=== PATIENT | male | born 1980 | race Caucasian/White ===

== ENCOUNTER 2017-08-03 20:25 | Inpatient (IN) | payer SELFPAY ==
[2017-08-03] MEDS ORDERED: Promethazine HCl 25 MG/ML VIAL ONE ×2 (20:51→23:24)
[2017-08-03] MEDS ORDERED: Dexamethasone 10 MG/ML VIAL ONE (20:51)
[2017-08-03] MEDS ORDERED: HYDROmorphone 0.5 MG/0.5 ML SYRINGE SLOW IVP SCH (21:00)
[2017-08-03] MEDS ORDERED: HYDROmorphone 0.5 MG/0.5 ML SYRINGE ONE ×2 (21:02→22:08)
[2017-08-03 21:06] LABS: #Lymphocytes 0.4 thou/uL (1.20-3.40); #Monocytes 0.4 thou/uL (0.11-0.59); #Neutrophils 7.8 thou/uL (1.40-6.50); %Basophils 0.1 % (0.0-1.0); %Eosinophils 0.2 % (0.0-10.0); %Lymphocytes 4.3 % (21.0-51.0); %Monocytes 4.7 % (0.0-10.0); %Neutrophils 90.7 % (42.0-75.0); Hemoglobin 10.2 g/dL (14.0-18.0); Mean Corpuscular HGB CONC 32.4 g/dL (32.0-36.0); Mean Corpuscular Hemoglobin 30.8 pg (27.0-31.0); Mean Corpuscular Volume 95.1 fl (80.0-94.0); Mean Platelet Volume 7.4 fL (7.4-10.4); Platelet Count 249 thou/uL (130-400); RBC Distribution Width 15.7 % (11.5-14.5); Red Blood Cell (RBC) Count 3.32 mill/uL (4.70-6.10); White Blood Cell (WBC) Count 8.6 thou/uL (4.8-10.8)
[2017-08-03 21:13] LABS: PTT 26.2 SEC (22.9-36.1); Prothrombin Time 13.3 SEC (12.0-14.7)
[2017-08-03 21:26] LABS: ALT (SGPT) 18 U/L (8-55); AST (SGOT) 15 U/L (5-34); Albumin 3.7 g/dL (3.5-5.0); Alkaline Phosphatase 68 U/L (40-150); Anion Gap 11 mmol/L (10-20); BUN (Urea Nitrogen) 7 mg/dL (8.9-20.6); Bilirubin, Total 0.3 mg/dL (0.2-1.2); Calc. Creatinine Clearance 0 mL/min (70-130); Calcium 8.8 mg/dL (7.8-10.44); Carbon Dioxide 25 mmol/L (22-29); Chloride 110 mmol/L (98-107); Estimated GFR-MDRD Greater than 90; Globulin 1.9 g/dL (2.4-3.5); Glucose 130 mg/dL (70-105); Potassium 3.9 mmol/L (3.5-5.1); Protein, Total 5.6 g/dL (6.0-8.3); Sodium 142 mmol/L (136-145)
[2017-08-03] MEDS ORDERED: Lorazepam 2 MG/ML VIAL ONE (23:01)
--- NOTE | 2017-08-03 23:17 | PDOC.FPRHP ---
- History of Present Illness Chief Complaint: Abdominal pain, N/V History of Present Illness: 37 year old male with PMH of glioblastoma diagnosed 10 months ago and Crohn's disease s/p bowel resection that presents with a 3 day history of bloody emesis and maroon colored loose stools. Patient was receiving chemo therapy at [facility] and was living in [place] prior to moving back to [facility] to be closer with family last Thursday. Jethro got infected last Thursday and he has been antibiotics since that time. He was on TPN for 4 months prior to the mediport infection because his PEG tube was not working properly. He states he is unable to take anything PO because he immediately vomits. He says he is also unable to take anything through his PEG tube because it immediately makes him vomit. He is on an extensive pain regimen at home to include diluadid. He states currently he is having diffuse abdominal pain and headaches, although on initial evaluation he said his headaches were no worse than a regular headache. Patient upset when told that dilaudid cannot be given on the floor with anesthesiology on board. He states that morphine and fentanyl do not do anything for him. ED Course: Patient given ativan 2 mg, dilaudid 2 mg IV, decadron 10 mg, phenergan 25 mg x2 , 1L NS bolus, and 500 mg IV Keppra in ED. Patient given 4 mg dilaudid in outside ED. - Allergies/Adverse Reactions Allergies Allergy/AdvReac Type Severity Reaction Status Date / Time iodine Allergy Verified 08/04/17 06:36 ketorolac Allergy Verified 08/04/17 06:36 NSAIDS (Non-Steroidal Allergy Verified 08/04/17 06:36 Anti-Inflamma tramadol Allergy Verified 08/04/17 06:36 - Home Medications Medication Instructions Recorded Confirmed Type Unobtainable [Unobtainable] 08/04/17 08/04/17 History - History PMHx: Crohn's Disease since 19 years old, Glioblastoma (receiving chemo), Hx CVA , Infected Mediport, Seizure disorder PSHx: PEG tube, Bowel resections 2/2 Crohn's '16 FHx: Non-contriubtory Social: Hx rare sporadic tobacco use. Denies alcohol or drug use. Has moved multiple times which he admits makes his medical care challenging. Receives chemo and likely sees primary oncologist at [facility]. Recently lived in [facility] for 3-4 months; flew back and forth for medical care. Moved to [place] today to be closer to mother to assist with his 5 children. - Review of Systems General: reports: fever/chills (tmax 102.4 F), weight/appetite/sleep changes ( unable to tolerate PO) Eyes: denies: eye pain, vision changes ENT: denies: nasal congestion, rhinorrhea Respiratory: denies: cough, congestion, shortness of breath Cardiovascular: reports: edema (due to chemo). denies: chest pain, palpitation Gastrointestinal: reports: nausea, vomiting (several episodes of bilious and bloody emesis, bright red over last 3 days), diarrhea, abdominal pain, GI bleeding (maroon colored loose stools) Genitourinary: denies: incontinence, dysuria, polyuria Skin: denies: rashes, jaundice, itching Musculoskeletal: denies: pain, tenderness, swelling Neurological: reports: seizure (history of seizure x1 since glioblastoma diagnosis). denies: numbness, syncope, weakness - Vital signs BP: 182/118 HR: 104 RR: 16 Tmax: 98.2 F Pox: 97% on RA Wt: 83.91 kg - Physical Exam Constitutional: NAD, awake, alert and oriented, well developed -Constitutional: Walking around prior to examination HEENT: normocephalic and atraumatic, PERRLA, EOMI Neck: supple Heart: RRR, no murmurs/rubs/gallops, pulses present, no edema Lungs: CTAB, no respiratory distress, no wheezing Abdomen: soft, no masses/distention -Abdomen: Mildly tender to palpation, worse in RLQ, hyperactive bowel sounds, PEG tube in place Musculoskeletal: normal structure, normal tone Neurological: no focal deficit, CN II-XII intact -Skin: Multiple tattoos FMR H&P: Results - Labs Result Diagrams: 08/04/17 06:52 08/04/17 06:52 Lab results: WBC 8.6 thou/uL (4.8-10.8) 08/03/17 20:52 Hgb 10.2 g/dL (14.0-18.0) L 08/03/17 20:52 Hct 31.6 % (42.0-52.0) L 08/03/17 20:52 MCV 95.1 fl (80.0-94.0) H 08/03/17 20:52 Plt Count 249 thou/uL (130-400) 08/03/17 20:52 Neutrophils % 90.7 % (42.0-75.0) H 08/03/17 20:52 Sodium 142 mmol/L (136-145) 08/03/17 20:52 Potassium 3.9 mmol/L (3.5-5.1) 08/03/17 20:52 Chloride 110 mmol/L (98-107) H 08/03/17 20:52 Carbon Dioxide 25 mmol/L (22-29) 08/03/17 20:52 BUN 7 mg/dL (8.9-20.6) L 08/03/17 20:52 Creatinine 0.75 mg/dL (0.6-1.3) 08/03/17 20:52 Glucose 130 mg/dL (70-105) H 08/03/17 20:52 Calcium 8.8 mg/dL (7.8-10.44) 08/03/17 20:52 Total Bilirubin 0.3 mg/dL (0.2-1.2) 08/03/17 20:52 AST 15 U/L (5-34) 08/03/17 20:52 ALT 18 U/L (8-55) 08/03/17 20:52 Alkaline Phosphatase 68 U/L (40-150) 08/03/17 20:52 Serum Total Protein 5.6 g/dL (6.0-8.3) L 08/03/17 20:52 Albumin 3.7 g/dL (3.5-5.0) 08/03/17 20:52 FMR H&P: A/P - Problem List (1) Upper GI bleed Current Visit: Yes Status: Acute Code(s): K92.2 - GASTROINTESTINAL HEMORRHAGE, UNSPECIFIED (2) Crohns disease Current Visit: Yes Status: Chronic Code(s): K50.90 - CROHN'S DISEASE, UNSPECIFIED, WITHOUT COMPLICATIONS (3) Glioblastoma Current Visit: Yes Status: Chronic Code(s): C71.9 - MALIGNANT NEOPLASM OF BRAIN, UNSPECIFIED - Plan Upper GI bleed - 3 day history of bloody emesis and maroon colored stools - Emesis not visualized - GI consulted in ED; appreciate recs - PEG tube to low suction and protonix per GI recs - FOBT positive Glioblastoma - On extensive pain regimen at home to include dilaudid - Diagnosed 9-10 months ago per pt; no records available at this time - Was receiving chemotherapy in [place] prior to moving to [place] - Had mediport removed last week due to infection; Was receiving TPN for 4 months prior to removal of mediport - Subjectively severe pain - Will continue home medications with the exception of dilaudid as that cannot be given on the floor without anesthesiology on board; will consult anesthesiology for PAPER SALES REPRESENTATIVE pump - Patient adamant he receive his pain medications - Consider oncology consult in AM to help establish care as patient is from out of town - Try to obtain medical records in AM Seizure disorder - One seizure since diagnosis of glioblastoma - Continue home med Mediport infection - Removed on Thursday - Continue Cipro; no sensitivities or culture available Crohn's disease - s/p resection and complications leading to PEG tube patient - GI consulted in ED; appreciate recs - Continue methotrexate, steroids, and humira - Continue home meds and await GI recs - May be in acute flare due to reported pain FMR H&P: Upper Level - Pertinent history 37 yo CM with PMHx glioblastoma, Crohns disease, and seizure d/o who presented to [facility] ED due to blood in emesis and stools. Pt is unable to eat or tolerate PEG tube feedings without vomiting over last 4 months due to complications with Crohns treatment. Endorses 4 months of TPN. Had mediport placed but became infected 7 days ago (staph aureus) and had to be removed. Currently on Cipro due to this. Pt did not apparently have a line replaced and has been unable to administer TPN or any IV meds since then. He attempted putting in PEG but he just vomits them. Over last 3 days, c/o worsening diffuse abdominal pain and is noticing mixture of old and new appearing blood in emesis , as well as melanotic stools. His hx is complicated by glioblastoma dx 9-10 months ago with recent completion of 7th (of 10) chemotherapy tx at [facility]. He recently lived in [facility] and endorsed flying back to [facility] for tx. He and 5 children just moved to [place] today to be closer to his mother. When discussing pain, he endorses occasional HAs just like the typical HAs regular people get sometimes. Nothing crazy. He also has rare blurry vision that resolves quickly. He currently endorses more severe abdominal pain just for last 3 days, but not present at baseline. States he only takes dilaudid at home when he needs it but due to comfortable environment at home, it tends not to be frequent. Of note, when told dilaudid not being approved for use on the hospital floors, he became agitated and started talking about HAs where his head is going to explode, etc. He was very argumentative and stated morphine and fentanyl dont work so we are just wasting our time. His story about pain began changing and he demanded dilaudid because he is dying of brain cancer and the doctors dont understand that. He states he is not going to display his pain outwardly but this doesn't mean he is not in significant pain. - Pertinent findings Gen: well nourished, NAD, alert HEENT: L IJ central line dressed CV: RRR, no m/r/g Lungs: coarse rales bilateral mid and lower lobes, decreased breath sounds R lung base; sporadic intermittent wheezing, no rhonchi Abd: generalized moderate abdominal pain worst in RLQ; ND, PEG in place; hyperactive BS, voluntary guarding Ext: no edema Skin: multiple tattoos, no erythema surrounding PEG Psych: story inconsistent at times; argumentative when discussing pain meds; tangential but easily directable; pain level appears incongruent with stated complaints at times - Plan Date/Time: 08/03/17 0694 1. Upper GI bleed. Dr. Renee consulted from ED and will see tomorrow. Appreciate recs. IV protonix ordered in light of methotrexate use (consider holding tomorrows weekly methotrexate or speak with pharmacy about adjusting dose temporarily). Hgb appears stable. Minimal blood visualized in stool with FOBT + test. Emesis not personally visualized. Admitting to oncology service due to comorbid brain tumor. 2. Persistent nausea/vomiting. Appears potentially related to complications from GI surgeries treating Crohns dz. Will consult nutrition team tomorrow for TPN as on for 4 months but none in last week. D5NS in meantime through central line placed at outside ED. GI consulted and appreciate recs. PEG tube to low suction currently. Pts pain subjectively severe. Hx daily dilaudid use due to brain cancer. Will consult anesthesia for pain control as pt adamant that nothing works anymore except dilaudid. Phenergan prn. 3. Glioblastoma. Dxd 9-10 months ago per pt. No records available at this time. Tx in [place]. Currently receiving chemo. Mediport removed last week due to infection so off all IV meds since. Oncology consult in AM although brain tumor appears at baseline symptomatically. Likely set up outpatient follow -up as no PCP for quick referral at moment. Will attempt to obtain records from another medical facility corroborating his diagnoses and treatment in AM as history was inconsistent and reservations concerning his need for strong pain meds in light of reported lack of pain at baseline. 4. Mediport infection. Continue IV Cipro from home. No sensitivities or culture available. May attempt to obtain records in AM. 5. Seizure d/o. Restart IV keppra. Had 1 seizure related to brain tumor and none since starting Keppra. 6. Crohns disease. GI consult in ED. Appreciate recs. Takes methotrexate, steroids, and Humira. Continue home meds and await GI recs. May be in acute flare due to reported pain. I, Gomez Mann, have evaluated this patient and agree with findings/plan as outlined by clinical nursing intern resident. Pertinent changes/additions are listed here.
[2017-08-03] MEDS ORDERED: Pantoprazole 40 MG VIAL ONE (23:24)
[2017-08-04] MEDS ORDERED: Morphine 4 MG/ML VIAL SLOW IVP PRN ×3 (02:01→02:26)
[2017-08-04] MEDS ORDERED: Promethazine HCl 25 MG/ML VIAL SLOW IVP PRN ×2 (02:02→12:06)
[2017-08-04] MEDS ORDERED: Lorazepam 2 MG/ML VIAL SLOW IVP PRN (02:03)
[2017-08-04] MEDS ORDERED: Sodium Chloride 0.9% 1,000 ML IV SCH (02:15)
[2017-08-04] MEDS ORDERED: Ondansetron HCl/PF 4 MG/2 ML Vial IVP PRN ×3 (02:24→12:06)
[2017-08-04] MEDS: Dextrose 5 % And 0.9 % NaCl 1,000 ML IV SCH ×4 (02:30→20:59)
[2017-08-04] MEDS ORDERED: Naloxone HCl 0.4 mg/ml Vial IV PRN (02:48)
[2017-08-04] MEDS ORDERED: diphenhydrAMINE 25 MG CAP PO PRN (02:48)
[2017-08-04] MEDS ORDERED: Zolpidem Tartrate 5 MG TAB PO PRN (02:48)
[2017-08-04] MEDS ORDERED: diphenhydrAMINE 50 MG/ML VIAL IM PRN (02:48)
[2017-08-04] MEDS ORDERED: Communication Order-Pharmacy FS SCH (03:00)
[2017-08-04] MEDS: HYDROmorphone 10 mg/100 ml CADD IVPB PRN (04:29)
[2017-08-04 07:04] LABS: #Basophils 0.1 thou/uL (0.0-0.2); #Lymphocytes 0.2 thou/uL (1.20-3.40); #Monocytes 0.3 thou/uL (0.11-0.59); #Neutrophils 8.5 thou/uL (1.40-6.50); %Basophils 0.6 % (0.0-1.0); %Eosinophils 0.3 % (0.0-10.0); %Lymphocytes 1.9 % (21.0-51.0); %Monocytes 3.5 % (0.0-10.0); %Neutrophils 93.8 % (42.0-75.0); Hemoglobin 9.7 g/dL (14.0-18.0); Mean Corpuscular HGB CONC 32.8 g/dL (32.0-36.0); Mean Corpuscular Volume 94.6 fl (80.0-94.0); Mean Platelet Volume 7.9 fL (7.4-10.4); Platelet Count 235 thou/uL (130-400); RBC Distribution Width 15.9 % (11.5-14.5); Red Blood Cell (RBC) Count 3.11 mill/uL (4.70-6.10); White Blood Cell (WBC) Count 9.1 thou/uL (4.8-10.8)
[2017-08-04 07:26] LABS: Anion Gap 9 mmol/L (10-20); BUN (Urea Nitrogen) 11 mg/dL (8.9-20.6); Calc. Creatinine Clearance 0 mL/min (70-130); Calcium 8.5 mg/dL (7.8-10.44); Carbon Dioxide 24 mmol/L (22-29); Chloride 110 mmol/L (98-107); Estimated GFR-MDRD Greater than 90; Glucose 212 mg/dL (70-105); Potassium 4.2 mmol/L (3.5-5.1); Sodium 139 mmol/L (136-145)
[2017-08-04] MEDS: Pantoprazole 40 MG VIAL IVP SCH (08:39)
[2017-08-04] MEDS: Promethazine HCl 25 MG/ML VIAL IM PRN ×2 (08:40→20:55)
[2017-08-04 09:55] LABS: Syphilis Antibody Nonreactive (Nonreactive); Syphilis Antibody Index 0.01 S/CO (<1.00 Non-Reactive)
[2017-08-04 09:56] LABS: HIV (1/2) Antibody/Antigen Non-Reactive (NonReactive); HIV 1/2 INDEX 0.11 S/CO (<1.00); Hep C IgG Ab Non-Reactive (NonReactive); Hep C Index 0.03 S/CO (0-0.79)
[2017-08-04] MEDS ORDERED: Meperidine HCl/PF 25 MG/ML VIAL SLOW IVP PRN (12:06)
[2017-08-04] MEDS ORDERED: Promethazine HCl 25 MG/ML VIAL IM PRN (12:06)
--- NOTE | 2017-08-04 13:03 | HP ---
I have reviewed the history and physical of Dr. Brittni Roldan and discussed the case with her. I agree with her assessment and plan. Briefly, Mr. Hardeep Arora is a 37-year-old white male patient, who unfortunately has recently been diagnosed with a glioblastoma and is on numerous medications for this problem. He presented to our emergency room with a 3-day history of bloody emesis and maroon-colored stool suggesting upper GI ble ed. He states he is unable to hold any food down even through his PEG tube. He states that the pres ence of food makes him immediately develop nausea and vomiting. PHYSICAL EXAMINATION: VITAL SIGNS: His blood pressure is 180/110, his respirations are 14 and not labored. He is afebrile . His heart rate is 98. GENERAL: He is awake, cooperative, alert. No distress. EARS, NOSE, and THROAT: No erythema or exudate. NECK: Supple. CARDIAC: Heart rhythm is regular, without gallop, rub, or murmur noted. LUNGS: Clear, without rales or wheezes. ABDOMEN: Soft. No masses, guarding, rebound, or rigidity. EXTREMITIES: No cyanosis or edema. NEUROLOGIC: No focal deficits are noted. LABORATORY DATA: His CBC: White count is 8600, hemoglobin 10.2, hematocrit 31.6 with an MCV of 95.1 . PT/INR normal. Chemistries: Sodium 142, potassium 3.9, chloride 110, bicarb 25, BUN 7, creatinin e 0.75. Glucose 130. Liver enzymes normal. His syphilis serology is nonreactive. ASSESSMENT: 1. Probable upper gastrointestinal bleed. 2. Glioblastoma. PLAN: GI has already been consulted and plan on an EGD later this morning. He is on a PPI. We will resume many of his home medications as well as a SR. DIRECTOR PRODUCT MANAGEMENT Dilaudid pump for pain.
[2017-08-04] MEDS ORDERED: Succinylcholine Chloride 20 MG/ML 10 ml SYRINGE FS ONE (14:27)
[2017-08-04] MEDS ORDERED: Dexamethasone 20 MG/5 ML VIAL ONE (14:27)
[2017-08-04] MEDS ORDERED: PROPOFOL 200 MG/20 ML VIAL ONE (14:27)
[2017-08-04] MEDS ORDERED: Lidocaine 1% PF 5 ML VIAL ONE (14:27)
[2017-08-04 18:47] VITALS: BMI 27.5
[2017-08-04] MEDS: diphenhydrAMINE 50 MG/ML VIAL IVP PRN (20:55)
[2017-08-04] MEDS ORDERED: Lorazepam 1 MG TAB PO SCH (23:45)
[2017-08-04] MEDS ORDERED: Lorazepam 1 MG TAB PO PRN (23:53)
[2017-08-05] MEDS: diphenhydrAMINE 50 MG/ML VIAL IVP PRN ×6 (00:51→20:59)
[2017-08-05] MEDS: Dextrose 5 % And 0.9 % NaCl 1,000 ML IV SCH ×4 (01:30→23:13)
[2017-08-05] MEDS: HYDROmorphone 10 mg/100 ml CADD IVPB PRN ×2 (04:28→15:38)
[2017-08-05] MEDS: Promethazine HCl 25 MG/ML VIAL IM PRN ×4 (04:29→20:42)
--- NOTE | 2017-08-05 06:20 | PDOC.FM ---
- Subjective Subjective: Patient states he did not have a good night. He states that he is constantly vomiting and can't keep anything down. He denies chest pain, sob, n/v/d. He states that he has had no new symptoms overnight. He doesn't feel safe going home because he doesn't have his home health set up for his medications and doesn't feel he would be successful at home. Nurses have brought to my attention that the patient is frequently going outside to smoke while taking his IV pump pole with him. They also state that he is eating multiple meals by mouth and that is why the EGD could not be done yesterday. They also state that he has not had any significant amount of vomiting and that he has not been truthful about his symptoms. - Objective Vital Signs & Weight: Vital Signs (12 hours) Temp Pulse Resp BP Pulse Ox 08/05/17 05:48 168/108 H 08/05/17 03:56 97.8 F 103 H 16 175/114 H 93 L 08/04/17 23:35 97.5 F L 97 16 172/107 H 96 08/04/17 20:00 97.5 F L 97 16 96 08/04/17 19:21 98.0 F 89 16 148/93 H 92 L Weight Weight 87.09 kg I&O: 08/03/17 08/04/17 08/05/17 06:59 06:59 06:59 Intake Total 0 500 Balance 0 500 Result Diagrams: 08/05/17 06:40 08/04/17 06:52 Phys Exam - Physical Examination Constitutional: NAD HEENT: moist MMs Central line catheter placed in left IJ Neck: no nodes Respiratory: no wheezing, clear to auscultation bilateral Cardiovascular: RRR, no significant murmur Gastrointestinal: soft, no distention, positive bowel sounds Musculoskeletal: no edema, pulses present Neurological: non-focal, normal sensation, moves all 4 limbs Lymphatic: no nodes Psychiatric: normal affect, A&O x 3 Skin: no rash Dx/Plan (1) Upper GI bleed Code(s): K92.2 - GASTROINTESTINAL HEMORRHAGE, UNSPECIFIED Status: Acute (2) Crohns disease Code(s): K50.90 - CROHN'S DISEASE, UNSPECIFIED, WITHOUT COMPLICATIONS Status: Chronic (3) Glioblastoma Code(s): C71.9 - MALIGNANT NEOPLASM OF BRAIN, UNSPECIFIED Status: Chronic (4) Seizure disorder Code(s): G40.909 - EPILEPSY, UNSP, NOT INTRACTABLE, WITHOUT STATUS EPILEPTICUS Status: Acute - Plan Plan: Upper GI bleed - 3 day history of bloody emesis and maroon colored stools - Emesis not visualized - GI consulted in ED; appreciate recs - PEG tube to low suction and protonix per GI recs - FOBT positive - EGD aborted due to failure of NPO status - Awaiting GI recs Glioblastoma - On extensive pain regimen at home to include dilaudid - Diagnosed 9-10 months ago per pt; no records available at this time - Was receiving chemotherapy in [place] prior to moving to [place] - Had mediport removed last week due to infection; Was receiving TPN for 4 months prior to removal of mediport - Subjectively severe pain - MANUFACTURING SALES REPRESENTATIVE pump in place - Patient adamant he receive his pain medications - Consider oncology consult in AM to help establish care as patient is from out of town - Consulting case management to help establish medications at home - WIll consult Oncology to help coordinate care. Seizure disorder - One seizure since diagnosis of glioblastoma - Continue home med Mediport infection - Removed on Thursday - Continue Cipro; no sensitivities or culture available Crohn's disease - s/p resection and complications leading to PEG tube patient - GI consulted in ED; appreciate recs - steroids, and humira - Methotrexate held due to bleed - Continue home meds and await GI recs - May be in acute flare due to reported pain Disposition: Stable, will await GI recs.
[2017-08-05] MEDS: Labetalol HCl 100 MG/20 ML VIAL SLOW IVP PRN ×3 (06:29→20:50)
[2017-08-05 06:58] LABS: #Lymphocytes 0.6 thou/uL (1.20-3.40); #Neutrophils 11.7 thou/uL (1.40-6.50); %Basophils 0.1 % (0.0-1.0); %Eosinophils 0.2 % (0.0-10.0); %Lymphocytes 4.4 % (21.0-51.0); %Monocytes 7.6 % (0.0-10.0); %Neutrophils 87.7 % (42.0-75.0); Hemoglobin 10.3 g/dL (14.0-18.0); Mean Corpuscular HGB CONC 33.5 g/dL (32.0-36.0); Mean Corpuscular Volume 95.5 fl (80.0-94.0); Mean Platelet Volume 7.8 fL (7.4-10.4); Platelet Count 263 thou/uL (130-400); RBC Distribution Width 15.9 % (11.5-14.5); White Blood Cell (WBC) Count 13.3 thou/uL (4.8-10.8)
--- NOTE | 2017-08-05 08:08 | CON ---
DATE OF CONSULTATION: 08/04/2017 REFERRING PHYSICIAN: Brittni Roldan D.O, Family Practice Service. REASON FOR CONSULTATION: Abdominal pain, history of hematemesis. HISTORY OF PRESENT ILLNESS: Mr. Hardeep Arora is a 37-year-old male transferred from [facility] yesterday. He was seen there because of abdominal pain, nausea, and vomiting, and history of vomiting some blood. He also has a history of passing melenic stool off and on. The patient was transferred from [facility] last night. In the ER, he had an episode of emesis and he vomited le ss than 50 mL of fresh blood. Since admission to the hospital, he has had no more nausea or vomiting . The patient appears very comfortable. He is awake, alert, and oriented. However, she seems to be somewhat confused. The patient was walking out of the hallway in the oncology floor and I stopped h im and I introduced myself. He says he does need a photographic reproduction technician because he had a colonoscopy a week ago in this hospital and they do not want another GI consult. I explained to him that he is here because of history of vomiting blood. Does not recall vomiting an y blood. Does not even recall that he was transferred from [facility] to [facility]. He claim ed that he was drinking very heavily yesterday and he drank about 8 or 9 shots of liquor and beer yes terday. It does not bother him about having a transfer from [facility]. The patient, however, is al ert and does communicate. He says the month and the year and date, etc. The patient had internal ju gular vein placement yesterday and he is getting actually some SYSTEMS PLANNER pump. We discontinued the SYSTEMS PLANNER pum p and he is walking out of the floor. He also walking around. The patient has a history of Cr ohn's disease longstanding from the age 19 and has had 2 surgeries done. He says he had a small ivonne l resection and also bowel resection. This was done two and half years ago at [facility]. He also lived in [facility] for a while and moved back to the [place] recently to be vivi se to his mother. He states his mother lives here and her name is Fiona. He has a sister who lives in [place], just property management. The patient has a history of a glioblastoma diagnosed about 1 0 months ago and he has undergone chemotherapy. There is also history of seizure disorder. The rachel ent claims he takes Humira, methotrexate and prednisone, etc. When I asked him who is the gastroente rologist visiting him, he does not know the name. He says his name is in cell phone and does not hav e cell phone here with him. He also had a PEG tube placement done in the past and he says sometimes he does not use PEG tube because when he puts some feed into PEG tube, he starts having gagging and v omiting. He also had a central line placement before and was replaced recently because of infection. He was placed on ciprofloxacin recently. No relevant history. MEDICAL ILLNESSES: 1. Longstanding Crohn's disease. 2. Glioblastoma 10 months ago and received chemotherapy. 3. History of CVA, in recovery. 4. Infected MediPort. 5. Seizure disorder. 6. Previous small bowel resection and also colon resection. 7. History of PEG tube placement. SOCIAL HISTORY: The patient is . He says his is in [place]. She is serving in the [employer] and because of his , they have been moving around from place to place. He has four child melina. He does . He drinks socially. No history of drug abuse. MEDICATIONS: List reviewed. REVIEW OF SYSTEMS: Reviewed remarkable for: 1. History of headache, seizure disorder. 2. Abdominal pain, nausea, vomiting, vomiting blood and also history of passing melanotic stool and diarrhea. 3. Arthralgias. PHYSICAL EXAMINATION: GENERAL: The patient is a young male, who appears very comfortable. He has multiple tatto os all over the body. He is awake, alert, and communicative. He is in no distress. VITAL SIGNS: He is afebrile. His pulse is around 96, blood pressure was 180/90. HEENT: Conjunctivae clear. NECK: Supple. No adenitis or thyromegaly. He has internal jugular vein line on the left side. CARDIOVASCULAR SYSTEM: First and second heart sounds normal. LUNGS: Clear to auscultation. ABDOMEN: Soft. Abdomen is nondistended. Abdomen is mildly tender. He has PEG over the left upper quadrant. No organomegaly or mass. EXTREMITIES: No edema. LABORATORY DATA: CBC shows WBC 8600, hemoglobin 10.2 dropping to 9.7 today, hematocrit 31.6 dropping to 29.4, platelet count 249,000, polymorphs 90, lymphocytes 4. Serum chemistries show sodium 142, p otassium 3.9, chloride 110, bicarbonate 25, BUN is 7, creatinine 0.75, glucose 130, calcium 8.8, bili acuña 0.3, AST 15, ALT 18, alkaline phosphatase 68, albumin 3.7. CLINICAL IMPRESSION: 1. A 37-year-old male with a history of vomiting blood, also passing blood in stool. 2. History of Crohn's disease, longstanding. He also had small bowel resection in the past. He pre sents with vomiting blood. Blood count is stable at the present time. 3. Vomiting blood. Blood count is stable at the present time. 4. Glioblastoma, starts on chemotherapy. 5. Seizure disorder. 6. Past history of cerebrovascular accident. PLAN: EGD later on today and will make further recommendations.
[2017-08-05] MEDS: Dexamethasone 10 MG/ML VIAL SLOW IVP SCH ×2 (09:21→20:37)
[2017-08-05] MEDS: Pantoprazole 40 MG VIAL IVP SCH (09:22)
[2017-08-05] MEDS ORDERED: Lisinopril 10 MG TAB PO SCH (11:00)
--- NOTE | 2017-08-05 12:11 | PRG ---
DATE OF SERVICE: 08/05/2017 SUBJECTIVE: Dr. Mercedes performed an EGD and has checked out on the patient. We are still awaitin g medical records from [place] to document that this gentleman does in fact have a glioblastoma. Ther e is some concern that he may be exhibiting drug-seeking behavior, but for now we certainly will give him the benefit of the doubt. We may need to at some point do brain imaging to document the presenc e of this glioblastoma. Mr. Arora is in no distress. Vital signs are stable except for elevated bl ood pressure.
--- NOTE | 2017-08-05 15:01 | RAD ---
SMALL BOWEL EXAM: HISTORY: Nausea and vomiting. Assess for small bowel obstruction. The patient is an oncology patient. FINDINGS: The patient has an indwelling J-tube. A small amount of Gastrografin was injected into that tube. S ubsequent images were obtained. Immediate films show opacification of jejunum. The jejunal loops and jejunal folds appear normal. A 30-minute film shows opacification of the ileum which also shows normal flow pattern with no dilatat ion. A 1-hour film shows opacification of the terminal ileum. Two-hour film shows contrast in the c olon and some residual opacification of the distal ileum. IMPRESSION: Unremarkable small bowel exam. No evidence of small bowel obstruction. POS: [facility]
--- NOTE | 2017-08-05 17:01 | OP ---
DATE OF SURGERY: 08/04/2017 OPERATIVE PROCEDURE: Esophagogastroduodenoscopy. PREOPERATIVE DIAGNOSIS: GI bleeding with history of hematemesis. POSTOPERATIVE DIAGNOSES: 1. Normal esophageal mucosa. 2. Normal GE junction. 3. Normal fundus and cardia. 4. Large amount of retained food material in the stomach and gastric antrum and occluding pyloric opening. However, there was no sign of bleeding seen as stomach is completely empty of food material. He also had a previously placed G -tube in place. PROCEDURE IN DETAIL: The patient was intubated and was given sedation by Anesthesia Department. This was done as there is a question whether the patient ate this morning. The bite block was placed. A Pentax video gastroscope under direct vision was passed down the oropharynx, past to the GE junction, into the stomach. The vocal cords appeared healthy. The esophageal mucosa appeared normal. food material the mucosa. These are all washed out. The GE junction, no pathology seen. There is no melena seen. The patient had large amount of food material in the stomach. The exam was not very satisfactory. However, there is no blood in the stomach or any coffee- ground material in the stomach. Retroflexion failed to show any fundus or cardia. The gastric body and gastric antrum limited exam showed no pathology. The scope would not be advanced into the duodenal bulb because of large amount of food material blocking the pyloric opening. The stomach was decompressed and the scope removed. RECOMMENDATIONS: 1. Discontinue n.p.o. 2. Diet as tolerated. 3. Unless he has recurrence of bleeding or any significant drop in blood count , I believe he does need a repeat endoscopy. CRISTI
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
[2017-08-06] MEDS: diphenhydrAMINE 50 MG/ML VIAL IVP PRN ×6 (00:45→20:30)
[2017-08-06] MEDS: HYDROmorphone 10 mg/100 ml CADD IVPB PRN (01:15)
[2017-08-06] MEDS: Promethazine HCl 25 MG/ML VIAL IM PRN ×3 (03:07→14:25)
[2017-08-06] MEDS: Labetalol HCl 100 MG/20 ML VIAL SLOW IVP PRN (03:50)
--- NOTE | 2017-08-06 05:59 | PDOC.FM ---
- Subjective Subjective: Patient continues to complain of abdominal pain, n/v. Dr. Mercedes has started tube feeds on him. He still does not feel up to going home. - Objective Vital Signs & Weight: Vital Signs (12 hours) Temp Pulse Resp BP BP Pulse Ox 08/06/17 03:50 101 H 181/106 H 08/06/17 03:40 97.9 F 101 H 16 181/106 H 96 08/06/17 00:00 97.6 F 97 16 161/100 H 95 08/05/17 20:50 100 184/112 H 08/05/17 20:00 97.6 F 97 16 97 08/05/17 19:27 97.7 F 100 16 184/112 H 97 Weight Weight 87.09 kg I&O: 08/04/17 08/05/17 08/06/17 06:59 06:59 06:59 Intake Total 0 500 60 Balance 0 500 60 Result Diagrams: 08/05/17 06:40 08/04/17 06:52 Phys Exam - Physical Examination HEENT: moist MMs Left IJ in place. Pérez facies Neck: no nodes Respiratory: no wheezing, clear to auscultation bilateral Cardiovascular: RRR, no significant murmur Gastrointestinal: soft, no distention, positive bowel sounds tenderness to palpation. G tube in place Musculoskeletal: no edema, pulses present Neurological: non-focal, normal sensation, moves all 4 limbs Lymphatic: no nodes Psychiatric: normal affect, A&O x 3 Skin: no rash Dx/Plan (1) Upper GI bleed Code(s): K92.2 - GASTROINTESTINAL HEMORRHAGE, UNSPECIFIED Status: Acute (2) Crohns disease Code(s): K50.90 - CROHN'S DISEASE, UNSPECIFIED, WITHOUT COMPLICATIONS Status: Chronic (3) Glioblastoma Code(s): C71.9 - MALIGNANT NEOPLASM OF BRAIN, UNSPECIFIED Status: Chronic (4) Seizure disorder Code(s): G40.909 - EPILEPSY, UNSP, NOT INTRACTABLE, WITHOUT STATUS EPILEPTICUS Status: Acute - Plan Plan: Upper GI bleed - 3 day history of bloody emesis and maroon colored stools - Emesis not visualized - GI consulted in ED; appreciate recs - PEG tube to low suction and protonix per GI recs - FOBT positive - EGD aborted due to failure of NPO status, normal small bowel follow through exam. - Awaiting GI recs, per Dr. Mercedes will start tube feeds Glioblastoma - On extensive pain regimen at home to include dilaudid - Diagnosed 9-10 months ago per pt; no records available at this time - Was receiving chemotherapy in [place] prior to moving to [place] - Had mediport removed last week due to infection; Was receiving TPN for 4 months prior to removal of mediport - Subjectively severe pain - FILE MACHINE OPERATOR pump in place - Patient adamant he receive his pain medications - Consider oncology consult in AM to help establish care as patient is from out of town - Consulting case management to help establish medications at home - Oncology with establish as outapatient. Seizure disorder - One seizure since diagnosis of glioblastoma - Continue home med Mediport infection - Removed on Thursday - Continue Cipro; no sensitivities or culture available Crohn's disease - s/p resection and complications leading to PEG tube patient - GI consulted in ED; appreciate recs - steroids, and humira - Methotrexate held due to bleed - Need meds for reconcilation. - Needs to bring records Disposition: Stable, will await GI recs.
[2017-08-06] MEDS ORDERED: hydrALAZINE 20 MG/ML VIAL SLOW IVP PRN (06:10)
[2017-08-06] MEDS: Dextrose 5 % And 0.9 % NaCl 1,000 ML IV SCH ×3 (07:13→22:19)
[2017-08-06] MEDS: Dexamethasone 10 MG/ML VIAL SLOW IVP SCH ×2 (08:34→20:47)
[2017-08-06] MEDS: Lisinopril 10 MG TAB PO SCH (08:34)
[2017-08-06] MEDS: Pantoprazole 40 MG VIAL IVP SCH (08:35)
--- NOTE | 2017-08-06 09:42 | PRG ---
DATE OF SERVICE: 08/05/2017 SUBJECTIVE: This is a 37-year-old male hospitalized with nausea, vomiting, and history of vomiting some blood. An EGD performed yesterday did not show any active bleeding. However, the exam was suboptimal because of retained food material. I do not see any blood staining or any coffee alicja und material. The patient's blood count is very stable. It really has not dropped much since admiss ion. He has mild anemia. The hemoglobin on admission 10.8, today 10.3, hematocrit 30.6. The patien t has been vomiting off and on, does not keep anything down. He underwent a small bowel series today . The gastric and small bowel series shows no evidence of obstruction. There is no abnormal dilatio n. However, he still says that he is vomiting off and on. He also complains of abdominal pain but t he abdomen exam is very benign. Abdomen is soft, nondistended, and nontender. There is a G-tube and he says when he uses G-tube, he gets vomiting. He claims he was on TPN for a long time because of n ausea and vomiting. OBJECTIVE: GENERAL: Appears comfortable, in no distress. VITAL SIGNS: He is afebrile, temperature 98.1 degrees Fahrenheit, pulse is 108, blood pressure is 18 7/114. CARDIOVASCULAR: First and second heart sounds normal. LUNGS: Clear to auscultation. ABDOMEN: Soft. Abdomen is nondistended. The exam is very benign, but he says he all over. CLINICAL IMPRESSION: A 37-year-old male who has Crohn disease with previous surgeries. Velez s history of glioblastoma diagnosed in multiple rounds of chemotherapy. He is moved from [place] to [facility] recently. He claims he was on TPN for a long time because of nausea and vomiting and he is not able to tolerate any . Clinically, appears very comfortable. He is muscular and well-nourished . His symptoms are somewhat puzzling with a negative exam. I had a long talk with Mr. Hardeep Eric as and planning on back to tube feeding again today and see what happens. I also informed him that h e may be needs to go a tertiary care center for a second opinion as symptoms with benign abdom en.
[2017-08-06] MEDS: Lorazepam 2 MG/ML VIAL SLOW IVP PRN ×2 (10:16→18:21)
[2017-08-06] MEDS ORDERED: Nicotine 14 MG PATCH TD SCH ×2 (11:45)
--- NOTE | 2017-08-06 15:43 | ADD-PRG ---
DATE OF SERVICE: 08/06/2017. This is an addendum to the note of Dr. Lupillo Hassan. Mr. Arora was ambulating down the londono. He complains of pain, but it does not appear to be particularly uncomfortable. GI has started him on s ome tube feedings. I am told his records are currently arriving via fax and these will be reviewed. We have also contacted psych social worker to help us with some of the social issues here.
[2017-08-06] MEDS: Promethazine HCl 25 MG/ML VIAL IM/IV PRN ×2 (17:38→20:30)
[2017-08-07] MEDS: Dextrose 5 % And 0.9 % NaCl 1,000 ML IV SCH ×4 (01:01→20:12)
--- NOTE | 2017-08-07 06:02 | PDOC.FM ---
- Subjective Subjective: Patient is a very inconsistent historian. Nurses report he slept all night long without any vomiting episodes. However, patient states he is constantly in severe pain. Patient does not have any abnormal vital signs that indicate severe pain. Patient also freely walks the halls without problem and converses in complete sentences. He still endorses multiple episodes of emesis. Patient states that he can't keep anything down. The nurses kept him NPO tonight for an EGD per Dr. Mercedes. He is waiting for that procedure this morning. He was counseled extensively on the need of medical records and that his pain medication will be decreased today and over the weekend if he stays inpatient. No other complaints. - Objective Vital Signs & Weight: Vital Signs (12 hours) Temp Pulse Resp BP Pulse Ox 08/06/17 20:00 97.8 F 98 16 92 L 08/06/17 19:56 97.8 F 98 16 144/92 H 92 L Weight Admit Weight 87.09 kg Weight 87.09 kg I&O: 08/05/17 08/06/17 08/07/17 06:59 06:59 06:59 Intake Total 500 2150.5 Output Total 350 Balance 500 1800.5 Result Diagrams: 08/05/17 06:40 08/04/17 06:52 <Lupillo Rosales - Last Filed: 08/07/17 08:22> - Objective Vital Signs & Weight: Vital Signs (12 hours) Temp Pulse Resp BP BP Pulse Ox 08/07/17 08:59 181/106 H 08/07/17 08:02 181/106 H 08/07/17 08:00 97.5 F L 87 16 08/07/17 07:52 97.5 F L 87 16 154/97 H 96 Weight Admit Weight 87.09 kg Weight 87.09 kg I&O: 08/06/17 08/07/17 08/08/17 06:59 06:59 06:59 Intake Total 2150.5 Output Total 350 Balance 1800.5 Result Diagrams: 08/05/17 06:40 08/04/17 06:52 <Dagoberto Jimenez - Last Filed: 08/07/17 11:06> Phys Exam - Physical Examination Constitutional: NAD HEENT: PERRLA Respiratory: no wheezing, clear to auscultation bilateral Cardiovascular: RRR, no significant murmur Gastrointestinal: soft, non-tender, no distention, positive bowel sounds Musculoskeletal: no edema, pulses present Neurological: non-focal, normal sensation, moves all 4 limbs Lymphatic: no nodes Psychiatric: normal affect, A&O x 3 Skin: no rash <Lupillo Rosales - Last Filed: 08/07/17 08:22> Dx/Plan (1) Upper GI bleed Code(s): K92.2 - GASTROINTESTINAL HEMORRHAGE, UNSPECIFIED Status: Acute (2) Crohns disease Code(s): K50.90 - CROHN'S DISEASE, UNSPECIFIED, WITHOUT COMPLICATIONS Status: Chronic (3) Glioblastoma Code(s): C71.9 - MALIGNANT NEOPLASM OF BRAIN, UNSPECIFIED Status: Chronic (4) Seizure disorder Code(s): G40.909 - EPILEPSY, UNSP, NOT INTRACTABLE, WITHOUT STATUS EPILEPTICUS Status: Acute - Plan Plan: Upper GI bleed - 3 day history of bloody emesis and maroon colored stools - Emesis not visualized - GI consulted in ED; appreciate recs - PEG tube to low suction and protonix per GI recs - FOBT positive - Awaiting GI recs, per Dr. Mercedes will start tube feeds - Repeat EGD this AM pending. Glioblastoma - On extensive pain regimen at home to include dilaudid - Diagnosed 9-10 months ago per pt; no records available at this time - Was receiving chemotherapy in [place] prior to moving to [place] - Awaiting medical records - Subjectively severe pain - CHEMISTRY ASSOCIATE pump in place - Patient adamant he receive his pain medications - Consulting case management to help establish medications at home - Oncology with establish as outpatient. - Will decrease CHEMISTRY ASSOCIATE pump intervals with Anesthesia recs in preparation of discharge planning. Seizure disorder - One seizure since diagnosis of glioblastoma - Continue home med Mediport infection - Removed on Thursday - Continue Cipro; no sensitivities or culture available Crohn's disease - s/p resection and complications leading to PEG tube patient - GI consulted in ED; appreciate recs - steroids, and humira - Methotrexate held due to bleed - Need meds for reconcilation. - Needs to bring records Disposition: Stable, will await GI recs. Concern for drug seeking behavior. Continue to stress need of medical records as well as working for discharge. EGD this AM and then discharge decision will be made from there. <Lupillo Rosales - Last Filed: 08/07/17 08:22> Attending Addendum - Attending Addendum Date/Time: 08/07/17 [id number] I personally evaluated the patient and discussed the management with Dr. Rosales. I agree with the History, Examination, Assessment and Plan documented above with any addition or exceptions noted below. Patient sleeping very comfortably in the room when we examined him this morning. However, he continues to endorse severe pain (of unknown primary etiology) and nausea and vomiting, which is information that conflicts with nursing reports. He has continued to delay us finding out about his past medical history as outside records have still not arrived, even though he reports working hard to make that happen. He also has never provided us a list of his home medications, only reporting verbally what he was taking. He is going for repeat EGD today, and if normal, we will work to discharge him. His blood counts are stable, and we do not note any other reason that he needs to be hospitalized. We will be discontinuing the Dilaudid over the day as we cannot be sure if he is truly on this medication at home. He continues to give very inconsistent details between the staff members and providers caring for him. If we can rule out bleeding and wean him from IV narcotics, I see no reason why he can not be discharged home today. He ambulates down the hallway without difficulty and I do not think he would need post acute care rehab or SNF. I have reviewed his [place] GRAY TENDER report since he reports being on chronic Dilaudid, and I cannot find any evidence that he has been prescribed that medication in the last 12 months in the state of [place] or in 21 other states that I have access to. <Dagoberto Jimenez - Last Filed: 08/07/17 11:06>
[2017-08-07] MEDS: Lorazepam 2 MG/ML VIAL SLOW IVP PRN ×3 (06:04→20:14)
[2017-08-07] MEDS: Promethazine HCl 25 MG/ML VIAL IM/IV PRN ×4 (06:04→21:50)
[2017-08-07] MEDS: Pantoprazole 40 MG VIAL IVP SCH (07:54)
[2017-08-07] MEDS: Dexamethasone 10 MG/ML VIAL SLOW IVP SCH ×2 (07:54→20:18)
[2017-08-07] MEDS: Nicotine 14 MG PATCH TD SCH (07:54)
[2017-08-07] MEDS: Lisinopril 10 MG TAB PO SCH (08:02)
[2017-08-07] MEDS: Amlodipine 5 MG TAB PO SCH (08:59)
[2017-08-07] MEDS ORDERED: Promethazine HCl 25 MG/ML VIAL ONE (14:00)
[2017-08-07] MEDS ORDERED: HYDROmorphone 0.5 MG/0.5 ML SYRINGE ONE (14:00)
[2017-08-07] MEDS ORDERED: Fentanyl 100 MCG/2 ML VIAL ONE (14:48)
[2017-08-07] MEDS ORDERED: Midazolam HCl 2 mg/2 ml Vial ONE (14:48)
[2017-08-07] MEDS ORDERED: PROPOFOL 200 MG/20 ML VIAL ONE (15:17)
[2017-08-07] MEDS ORDERED: Lidocaine 1% PF 5 ML VIAL ONE (15:17)
[2017-08-08] MEDS: diphenhydrAMINE 50 MG/ML VIAL IVP PRN ×2 (00:10→04:35)
[2017-08-08] MEDS: Lorazepam 2 MG/ML VIAL SLOW IVP PRN ×2 (00:11→04:36)
[2017-08-08] MEDS: Promethazine HCl 25 MG/ML VIAL IM/IV PRN ×2 (01:57→06:48)
--- NOTE | 2017-08-08 03:04 | PDOC.EVN ---
Event Note - Event Note Event Note: Called by nursing staff because pt was requesting pain medications. His RN ORTHOPAEDIC pump was discontinued 2/2 pt wandering out of the unit for hours at a time and unable to be found. He was warned multiple times not to leave the unit or his pump would be removed, nonetheless, he persisted to leave. On talking with pt he states he has been in the lobby by the cafe talking to his daughter; however , according to nursing staff he has not been in the lobby when they attempted to find him. Pt also reported that he was talking to the senior network security architect. We spoke with house sup nurse who contacted information systems security officer to confirm, but the information systems security officer denied ever speaking with or seeing the patient. Upon chart review, attending physician documentation this morning reports that there is no evidence that the pt has ever received a hydromorphone prescription in the state of [place] nor in any of the other 21 states that provider has narcotic prescription data access to. Pt reports he has been receiving care in [facility]; however, he has refused to release his medical records. He states he is leaving in the AM to go back to his normal doctors. We offered the pt morphine for his pain since his RN ORTHOPAEDIC pump was discontinued; however, the pt reported "that hugh mouse shit doesn't work." I witnessed patient ambulating the halls without any overt signs of distress or difficulty ambulating. One time dose of 4mg morphine ordered for when needed. Will defer further pain management to day team and anesthesia.
[2017-08-08] MEDS ORDERED: Morphine 4 MG/ML VIAL SLOW IVP SCH (03:45)
[2017-08-08] MEDS: Dextrose 5 % And 0.9 % NaCl 1,000 ML IV SCH (05:13)
--- NOTE | 2017-08-08 06:04 | PDOC.FM ---
- Subjective Subjective: Hardeep Arora seen at bedside this morning. Last night his MOVIE EXTRA pump was discontinued because patient has still not provided to any records of a diagnosis or proof of treatment, he has refused to sign a release of medical records form, and he has been unhooking himself from suction and leaving the unit. Over the night prior to MOVIE EXTRA pump being turned off, he left unit for over an hour and came back with a man who had not been present over entire admission and both went into his room and the unknown man walked out with a stack of books. The patient was offered morphine for pain control and refused that as well. He denied any problems this morning, only states that he wanted to sleep and that he is going to go back to his real doctor in [place] today. - Objective MAR Reviewed: Yes Vital Signs & Weight: Vital Signs (12 hours) Temp Pulse Resp BP Pulse Ox 08/08/17 03:56 98.1 F 92 16 174/109 H 97 08/07/17 23:18 98.1 F 114 H 20 158/99 H 96 08/07/17 20:00 98.3 F 114 H 16 97 08/07/17 19:32 98.3 F 114 H 16 130/83 97 Weight Admit Weight 87.09 kg Weight 87.09 kg I&O: 08/06/17 08/07/17 08/08/17 06:59 06:59 06:59 Intake Total 2150.5 24 Output Total 350 Balance 1800.5 24 Result Diagrams: 08/05/17 06:40 08/04/17 06:52 Phys Exam - Physical Examination Constitutional: NAD HEENT: moist MMs, sclera anicteric Respiratory: no wheezing, no rales, no rhonchi, clear to auscultation bilateral Cardiovascular: RRR, no significant murmur Musculoskeletal: no edema Neurological: moves all 4 limbs Psychiatric: normal affect, A&O x 3 Skin: no rash Dx/Plan (1) Seizure disorder Code(s): G40.909 - EPILEPSY, UNSP, NOT INTRACTABLE, WITHOUT STATUS EPILEPTICUS Status: Acute (2) Upper GI bleed Code(s): K92.2 - GASTROINTESTINAL HEMORRHAGE, UNSPECIFIED Status: Acute (3) Crohns disease Code(s): K50.90 - CROHN'S DISEASE, UNSPECIFIED, WITHOUT COMPLICATIONS Status: Chronic (4) Glioblastoma Code(s): C71.9 - MALIGNANT NEOPLASM OF BRAIN, UNSPECIFIED Status: Chronic - Plan Plan: Upper GI bleed - 3 day history of bloody emesis and maroon colored stools - Emesis not visualized - GI consulted in ED; appreciate recs - PEG tube to low suction and protonix per GI recs - FOBT positive - EGD performed yesterday with biopsy - awaiting clearance from GI for discharge Glioblastoma - On extensive pain regimen at home to include dilaudid - Diagnosed 9-10 months ago per pt; no records available at this time - Was receiving chemotherapy in [place] prior to moving to [place] - Awaiting medical records - Subjectively severe pain - MOVIE EXTRA pump discontinued last night - Patient adamant he receives his pain medications - Consulting case management to help establish medications at home - Oncology with establish as outpatient. - refused to sign release of medical records form - now states maybe he had pituitary cancer Seizure disorder - One seizure since diagnosis of glioblastoma - Continue home med Mediport infection - Removed on Thursday - Continue Cipro; no sensitivities or culture available Crohn's disease - s/p resection and complications leading to PEG tube patient - GI consulted in ED; appreciate recs - steroids, and humira - Methotrexate held due to bleed - Need meds for reconcilation. - Needs to bring records Disposition: Stable, will await GI recs. There is continued concern for drug seeking behavior. Continue to stress need of medical records as well as working for discharge.
[2017-08-08 08:47] VITALS: TEMP 97.5
--- NOTE | 2017-08-08 11:01 | PRG ---
DATE OF SERVICE: 08/07/2017 SUBJECTIVE: This is a 37-year-old male transferred from [place], 3 days ago with abdomi nal pain, history of hematemesis etc,. The patient had history of Crohn's disease for several years and has had 2 surgeries in the past. He claims that he has been at TPN on a long-term basis as he is not keep anything down. Interestingly, he has a PEG tube placement in the past. He said that even he put anything to the PEG tube, feels nauseous and keeps throwing up. Although he complains of this abdominal pain, nausea, and vomiting, he appears very comfortable in no distress. His abdominal exa m is very benign. I am really not sure why he wants pain medication. The patient keeps saying that he cannot have anything to the PEG tube, because something in the PEG tube causes vomiting. I did Ga strografin small bowel series yesterday and some difficulty. There is no evidence of small ___ __. He had no medical records from he states his mother called something today. PHYSICAL EXAMINATION: GENERAL: He appears very comfortable in no acute distress. VITAL SIGNS: Stable. CARDIOVASCULAR AND LUNGS: Within normal limits. ABDOMEN: Soft. He has a PEG tube over the epigastric area. Abdomen is nondistended. He says abdom inal is very tender, but overall from the examination abdomen is overall very benign. CLINICAL IMPRESSION: 1. Chronic pain with no physical findings on examination. 2. Nausea and vomiting and not sure Gastrografin small bowel series was normal. I had a long talk with Mr. Arora and I explained, probably repeat the EGD tomorrow. He is agreeable . I will plan for EGD tomorrow and make further recommendations.
[2017-08-08] MEDS: Nicotine 14 MG PATCH TD SCH (12:40)
[2017-08-08] MEDS: Lisinopril 10 MG TAB PO SCH (12:40)
[2017-08-08] MEDS: Dexamethasone 10 MG/ML VIAL SLOW IVP SCH (12:40)
[2017-08-08] MEDS: Amlodipine 5 MG TAB PO SCH (12:40)
[2017-08-08 12:41] VITALS: BP 181/106
[2017-08-08] MEDS: Pantoprazole 40 MG VIAL IVP SCH (12:41)
--- NOTE | 2017-08-09 15:07 | ADD-PRG ---
ADDENDUM DATE OF SERVICE: 08/08/2017 Please see the note from Dr. Vincent, for which I concur. Basically, the patient signed out against me dical advice this morning as he was frustrated with us because we were unable to give him IV Dilaudid and because of extensive time out of the facility yesterday. Anesthesia would not allow him to cont inue with the [employer] pump as often he cannot actually been found when he was in the hospital, so it soun ds like they discontinued that. He was not happy with any other pain medicines we are willing to giv e him or able to give him as we were unable to give IV Dilaudid here in the hospital. He was adamant and fairly willing to take his IV Dilaudid, so he is going to go somewhere else. There is rashard e question about will we allow him to leave with the central line in place. Bottom line is we clearl y do not want that, but he is refusing to let us touch him to take it out. Therefore, it is deemed t his would be form of assaultive if we were to take this out against his will and afraid of physical a ltercation and then potential harm to the patient or others trying to restrain him if we were to do t hat. I did warn him that a central line like this is not meant to be permanent, and only meant to be short term and it will likely get infected, which could be easily lead to a blood infection, sepsis, which could also easily lead to septic emboli, stroke, , bacterial endocarditis, etc. So, stro ngly urged him to allow to take this out, but he would not. Therefore, the patient states since he g ets a ride, he is leaving the hospital against medical advice and understands these potential and shayla y serious risk that he is taking matter in his own hands. He is clear and sound mind, can make his o wn medical and life decisions, so I do not think we need to restrain him from a psychiatric standpoin t nor that would be appropriate. I did tell if he starts getting any fever, chills, chest pain, shor tness of breath, he is to go to an emergency room immediately because those could easily be indicator s that his blood is getting infected, any redness or swelling around the central line site as well.
== END 2017-08-08 15:19 | disposition left against medical advice (07) | DRG 378 ==
LOC: ERS 20:25 → ONC 23:17
PROVIDERS: ADMIT Family Medicine; ATTEND Family Medicine
PROC: 0DJ08ZZ Inspection of Upper Intestinal Tract, Via Natural or Artificial Opening Endoscopic (ICD-10-PCS; principal; 2017-08-03)
DX: K92.2 Gastrointestinal hemorrhage, unspecified (principal); T80.219A Unspecified infection due to central venous catheter, initial encounter; K50.90 Crohn's disease, unspecified, without complications; C71.9 Malignant neoplasm of brain, unspecified; G40.909 Epilepsy, unspecified, not intractable, without status epilepticus; Z53.21 Procedure and treatment not carried out due to patient leaving prior to being seen by health care provider; Z93.1 Gastrostomy status
CPT/HCPCS: 36415; 74250; 80048; 80053; 82274; 85025; 85610; 85730; 86140; 86780; 86803; 87389; 88305; 88312; 88313; 93005; 96361; 96365; 96375; 96376; A4216; C9113; J1100; J1170; J1200; J1953; J2001; J2060; J2250; J2270; J2550; J2704; J3010